=== PATIENT | female | born 1975 | race Two or more races ===

== ENCOUNTER 2025-08-30 13:25 | Emergency (ER) | payer OTHER ==
[~2025-08-30] VITALS: Ht 162.6 cm; Wt 113.4 kg
[2025-08-30] MEDS ORDERED: METFORMIN HCL500 M2 PO (13:46)
[2025-08-30] MEDS ORDERED: MOUNJARO5 MG/0.5 M SUBCUTANEO (13:47)
[2025-08-30] MEDS ORDERED: LACTOBACILLUS ACIDOPHILUS 1 CAP CAP PO ONE ×2 (15:00→15:29)
[2025-08-30] MEDS ORDERED: ONDANSETRON HCL 2 MG/ML VIAL IV ONE (15:00)
[2025-08-30] MEDS ORDERED: FAMOTIDINE/PF 20 MG/2 ML VIAL IV ONE (15:00)
[2025-08-30] MEDS ORDERED: 0.9 % SODIUM CHLORIDE 1,000 ML IV ONE (15:00)
[2025-08-30] MEDS ORDERED: ONDANSETRON HCL 2 MG/ML VIAL ONE (15:28)
[2025-08-30] MEDS ORDERED: FAMOTIDINE/PF 20 MG/2 ML VIAL ONE (15:29)
[2025-08-30 16:05] LABS: BASO % 0.2 % (0.1-1.2); EOS # 0.26 (0.04-0.54); EOS % 1.9 % (0.7-7.0); LYMPH # 1.74 (1.18-3.74); LYMPH % 12.9 % (19.3-53.1); MEAN PLATELET VOLUME 10.20 fl (9.4-12.4); MONO # 1.17 (0.24-0.82); MONO % 8.7 % (4.7-12.5); NEUT # 10.19 (1.56-6.13); NEUT % 75.9 % (34.0-71.1); RED CELL DISTRIBUTION WIDTH 14.6 % (11.6-14.4)
[2025-08-30 16:31] LABS: ALT/SGPT 24.0 U/L (12-78); AST/SGOT 13.0 U/L (15-37); BILIRUBIN TOTAL 0.84 mg/dL (0.3-1.2); BILIRUBIN,CONJUGATED 0.22 mg/dL (0.0-0.2); BUN CREA RATIO 20.0 (7.0-25.0); CREATININE SERUM 0.94 mg/dL (0.55-1.02); GFR 63.29; GLOBULINA 4.8 G/DL (2.4-3.5); GLUCOSE FASTING 128.0 mg/dL (65-100); OSMOLALITY SERUM 280.0 MOSM/KG (275-295)
[2025-08-30 16:46] LABS: URINE APPEARANCE Cloudy; URINE BILIRRUBIN Negative (NEGATIVE); URINE COLOR Dark Yellow; URINE GLUCOSE Negative (NEGATIVE); URINE KETONE Trace (NEGATIVE); URINE LEUKOCYTE Small; URINE NITRATE Negative; URINE PROTEIN 30 (NEGATIVE); URINE UROBILINOGEN 1.0 E.U./dl
[2025-08-30 16:50] LABS: URINE BACTERIA 181.1 uL (0.0-1933); URINE CAST 7.47 uL (0.0-1.40); URINE RBC 41.7 uL (0.0-20.8)
[2025-08-30 17:18] LABS: URINE BLOOD Traces; URINE EPITHELIAL CELLS > 201.7 uL (0.0-38.8)
[2025-08-30 17:25] LABS: URINE MUCUS SCANT; URINE WBC 154.2 uL (0.0-23.2)
[2025-08-30 17:26] LABS: TYPE CELLS SQUAMOUS
[2025-08-30] MEDS ORDERED: CIPRO500 MG PO (19:18)
[2025-08-30] MEDS ORDERED: LEVSIN0.125 MG PO (19:18)
[2025-08-30] MEDS ORDERED: METRONIDAZOLE500 MG PO (19:18)
[2025-08-30] MEDS ORDERED: INTESTINEX680 M1 PO (19:18)
[2025-08-30] MEDS ORDERED: PEPCID AC20 MG PO (19:18)
== END 2025-08-30 20:47 | disposition home or self-care (01) ==
LOC: ER 13:25
PROVIDERS: General Practice
DX: K52.9 Noninfective gastroenteritis and colitis, unspecified (principal); E11.9 Type 2 diabetes mellitus without complications; Z79.84 Long term (current) use of oral hypoglycemic drugs; K76.0 Fatty (change of) liver, not elsewhere classified